=== PATIENT | female | born 1955 | race Caucasian/White ===

== ENCOUNTER 2017-04-24 14:41 | Observation (INO) | payer OTHER ==
--- NOTE | ~2017-04-24 | CR72 ---
[facility] A Service of [facility] RADIOLOGY TEXT RESULTS PATIENT: CHRISSY LANZA LOCATION: [facility] 331- : 53 UNIT #: [id number] AGE: [address]: SHIRLEY GARLAND MD SEX: F ORDER DR: [id number] [facility] [address]. [place], [place] [address] [id number] I MR#: [id number] Acc #: [id number] NAME: CHRISSY LANZA : 1955 SEX: F STUDY DATE/TIME: 04/24/2017 15:33 UNIT: [address] ROOM: [facility] STUDY DESCRIPTION: CR Chest Single View Portable Attending Physician: Shirley Garland M.D. Ordering Physician: Darvin Cordero D.O. Primary Care Physician: Hua Casper M.D. MEDICAL IMAGING REPORT This report is preliminary unless electronic signature is present EXAM Portable chest INDICATIONS Dizziness today. Headache and syncope. COMPARISON 12/17/16 FINDINGS Lungs are well expanded. No acute infiltrate. Heart size normal. Stable scoliosis. IMPRESSION No active disease. Dictated by... Elmo Alvarado M.D. THIS IS AN ELECTRONICALLY VERIFIED REPORT Elmo Alvarado M.D. at 04/25/2017 7:38 AM ARS/monique TD: 04/24/2017 20:59 JOB #: [id number] MEDICAL IMAGING REPORT Page 1 of 1 COPY
--- NOTE | ~2017-04-24 | EKG ---
PATIENT: CHRISSY LANZA UNIT #: [id number] Ventricular Rate: 54 BPM Atrial Rate: 54 BPM P-R Interval: 156 ms QRS Duration: 92 ms Q-T Interval: 436 ms QTC Calculation(Bezet): 413 ms P Argyle: 52 degrees Calculated R Argyle: -7 degrees Calculated T Argyle: -17 degrees Diagnosis Line: Sinus bradycardia Diagnosis Line: Nonspecific ST abnormality Diagnosis Line: Abnormal ECG Diagnosis Line: When compared with ECG of 17-DEC-2016 08:40, Diagnosis Line: Questionable change in initial forces of Septal Diagnosis Line: leads Diagnosis Line: Confirmed by RG FLOYD MD ([id number]) on Diagnosis Line: 04/25/2017 9:09:23 PM INTERPRETING MD: ADE
--- NOTE | ~2017-04-24 | DS ---
Unit #: [id number] #: [id number] Patient: CHRISSY LANZA [id number] [address] [place], [place] [address] [id number] I MR#: [id number] NAME: CHRISSY LANZA ROOM: 331 Age: 61 Sex: F Admission Date: 04/24/2017 : 1955 Discharge Date: 04/25/2017 Attending Physician: Maya Friend M.D. Primary Care Physician: Hua Casper M.D. DISCHARGE SUMMARY SHORT STAY SUMMARY DIAGNOSIS ON ADMISSION Near syncope. DIAGNOSES ON DISCHARGE 1. Syncope. 2. Bradycardia, resolved. 3. Hypertension. 4. Continued tobacco abuse. 5. Migraine headache. 6. Depression. CONSULTATIONS 1. Dr. Downey in cardiac consultation. 2. Dr. Johnston in neuro consultation. HISTORY OF PRESENT ILLNESS A 61-year-old patient was admitted in the hospital with a syncopal episode. Details are as per admission H and P. Patient was seen by cardiology in consultation who performed echocardiogram which as per cardiology was okay. Cardiology is planning to do an event monitor and states that patient can be discharged home. Patient was seen by Dr. Johnston in neurology consultation, who stated that patient does not need any seizure medicine at this point but needs further workup at [facility]. Today patient is comfortable, is not in any acute distress, wants to go home. RECOMMENDATIONS ON DISCHARGE Condition is stable. Activity as tolerated. MEDICATIONS 1. Tylenol 650 mg p.o. q.6 hours p.r.n. 2. Depakote ER 500 mg p.o. nightly. 3. Cymbalta 60 mg p.o. daily. 4. Valtrex 1 g p.o. daily p.r.n. 5. Klonopin 1 mg p.o. p.r.n. 6. Lisinopril 10 mg p.o. daily. 7. Multivitamin one tablet p.o. daily. 8. Hydrocodone one tablet p.o. nightly p.r.n. 9. Vitamin C 500 mg p.o. daily p.r.n. Unit #: [id number] #: [id number] Patient: CHRISSY LANZA 10. Patient's atenolol was discontinued because of the bradycardia. FOLLOWUP 1. The patient is advised to follow up with primary care physician in one week and have a CBC, BMP, and TSH done. 2. The patient is advised to follow up with cardiology as recommended in [facility] as recommended. 3. Cardiology will arrange an event monitor on discharge. 4. Smoking cessation education was provided. The plan was discussed in detail with patient who showed complete understanding. Dictated by... Nory Spain/jacqueline TD: 04/25/2017 16:45 JOB #: [id number] CC: Hua Casper M.D. DISCHARGE SUMMARY Page 1 of 1 X Maya Friend MD X DISCHARGE SUMMARY
--- NOTE | ~2017-04-24 | CO ---
Unit #: [id number] #: [id number] Patient: CHRISSY LANZA [id number] [facility] [address]. [place], [place] [address] [id number] I MR#: [id number] NAME: CHRISSY LANZA ROOM: 331 Age: 61 Sex: F Admission Date: 04/24/2017 : 1955 Attending Physician: Maya Friend M.D. Primary Care Physician: Hua Casper M.D. Consultation Date: 04/25/2017 CONSULTATION REPORT PRIMARY CARE PHYSICIAN Dr. Hua Casper. REASON FOR CONSULTATION Syncopal/near-syncopal episode. PATIENT IDENTIFICATION This is a 61-year-old right-handed white female who is evaluated in room 331 at [facility]. SOURCE OF INFORMATION The patient and evaluation done by Dr. Garland. PROBLEM LIST 1. Hypertension. 2. Active smoker. 3. Migraine. 4. Depression. 5. Back problem. 6. History of seizures/stress-related seizures. 7. Left knee replacement. 8. Carpal tunnel release. 9. Tubal ligation. 10. Bradycardia. HISTORY OF PRESENT ILLNESS This is a 61-year-old right-handed white female who actually was admitted because she had a possible syncopal or near syncopal episode. The patient reports that she has not been feeling well since last Monday, and apparently, she is supposed to be either on lisinopril or metoprolol, but apparently she took both of them. She called her primary care physician and told her not to combine both yet she did it because she was going to work, and for some reason, she thought it was needed. She felt lightheaded and dizzy and yesterday while going to the car she collapsed. She apparently may have passed out. She was a bit confused, but nobody witnessed the generalized seizure. She reports that her son, who was in the house, came to get her. There was no loss of bowel or bladder control. Apparently, she was then brought into the hospital and she was slightly bradycardic. Neurology was consulted because she has history of seizures. Apparently, she has had a full neuro workup done in the past. It looks like she has had epileptic monitoring done and she reports that her seizures were reportedly due to stress, so when she changed her job and then got Unit #: [id number] #: [id number] Patient: CHRISSY LANZA . She never had any seizure. She was on Keppra and may have used other medication, but it caused her to be lethargic, but apparently, the medication was stopped and she has not had any events. She has not had any events in about 15-20 years. No headaches now, but she has history of migraines and she somehow reports that it causes problems. Cardiology is seeing her because she has bradycardia. She has a lot of stress. She still works as an RN at [employer]. PAST MEDICAL HISTORY As discussed above. PAST SURGICAL HISTORY As discussed above. ALLERGIES Lamotrigine and alteplase and I am uncertain why and when she got alteplase. HOME MEDICATIONS Cymbalta, Zestril, Tenormin, Imitrex, and Klonopin. Other medications ?. FAMILY HISTORY No epilepsy. SOCIAL HISTORY The patient is . She lives with her son. 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 She is smoking about a half pack per day for many years. Denies any alcohol or drug use. REVIEW OF SYSTEMS Detailed review of system was attempted. GENERAL: The patient denies any weight issues, fever, chills, rigor, or sweats. HEENT: No headaches. No double vision, earache, runny nose, or sore throat. CARDIOVASCULAR: No chest pain, clubbing, cyanosis, orthopnea, or palpitation. PULMONARY: No shortness of air, cough, or expectoration. GASTROINTESTINAL: No nausea, vomiting, diarrhea, or constipation. GENITOURINARY: No genitourinary symptoms. PSYCHIATRIC: Issue is probably anxiety and depression. NEUROLOGIC: Issue was prior history of spells, probably nonepileptic events. No other hematologic, dermatologic, or endocrine problems. No genitourinary symptoms. No extremity or back problems actively. She did have possible brachial plexopathy in the past. PHYSICAL EXAMINATION VITAL SIGNS: Temperature 98.4, pulse 62, respirations 18, blood pressure 134/72 lying down, pulse is 62, sitting was 132/70 and pulse was 68, standing was 132/74 and pulse was 70, O2 saturation were 92% to 100%. NEUROLOGIC: The patient is awake, alert, and oriented x3 and has normal Unit #: [id number] #: [id number] Patient: CHRISSY LANZA speech. Cranial nerve examination demonstrates full whiteside of vision to confrontation. Eye movements are conjugate. I did not see any ptosis. I did not see any nystagmus. Extraocular movements are intact. Sensation on the face and scalp are normal. Strength of muscles of facial expression normal. Hearing seemed to be intact bilaterally. Tongue was midline. Uvula was midline. Palate elevation is normal. Head turning and shoulder shrugs were unremarkable. Motor examination demonstrated normal bulk and tone. Strength was essentially 5-/5 all over. No pronator drift or fine motor movement abnormalities were seen. Sensory examination intact for soft touch and pain sensation. No extinction was seen. Romberg was not evaluated. Gait exams were deferred. Reflexes 1/4. Toes are equivocal. DIAGNOSTIC STUDIES LABORATORY RESULTS: Random glucose was 79 to 83, otherwise chemistry profile was okay. White count was 8.0, hemoglobin and hematocrit of 12.9 and 39.6, and platelet count was 273. Urine drug screen was positive for opiates, but not for benzos. Urinalysis showed leukocyte esterase 2+, 5-10 wbc's, 1+ and bacteria. IMAGING STUDIES: A head CT, which was unremarkable. IMPRESSION This is a very interesting 61-year-old female with syncope or near syncopal episode. She was bradycardiac. She was taking lisinopril and metoprolol. She has a prior history of "seizures," but she was evaluated and I believe she was not found to be epileptic as these are stress-related events. The recommendation was to observe, so I would continue observation, loss of consciousness precautions apply, and I will recommend that she goes back to [facility], where she was seen in the past and be re-evaluated. These may be provoked events from bradycardia the way they are presented. Epilepsy not established, but not absolutely ruled out as she has had some problems with antiepileptics, I would not blindly go with antiepileptics, though we can consider Vimpat 50 to 100 mg twice daily, but she agrees to be revaluated 1st and she is an RN, so I think this will be a better idea. I discussed with the team briefly. Again if she did loose consciousness, the loss of conscious precautions apply. Call me if any other questions, issues, or concerns. Call me for any other events. Dictated by... Briseyda Johnston M.D. AUGUSTA/tito TD: 04/26/2017 12:04 JOB #: [id number] Unit #: [id number] #: [id number] Patient: CHRISSY LANZA CONSULTATION REPORT Page 1 of 1 X Briseyda Johnston MD X CONSULTATION REPORT
--- NOTE | ~2017-04-24 | CO ---
Unit #: [id number] #: [id number] Patient: CHRISSY LANZA [id number] [address] [place], [place] [address] [id number] I MR#: [id number] NAME: CHRISSY LANZA ROOM: 331 Age: 61 Sex: F Admission Date: 04/24/2017 : 1955 Attending Physician: Maya Friend M.D. Primary Care Physician: Hua Casper M.D. CONSULTATION REPORT REASON FOR CONSULTATION Syncope. HISTORY OF PRESENT ILLNESS This is a 61-year-old white female, who presented to the emergency room with a syncopal episode. She stated on Monday she was at work and did not feel well. After driving home, she did not realize how she actually made it to there. On Monday, she began to have a left-sided headache. No vision disturbances, unilateral weakness or difficulty with swallowing. Yesterday, her blood pressure was elevated, which she states was 148/110 mmHg. She had been taking the atenolol in the past, but was told to stop taking lisinopril by her primary care physician. Because her blood pressure was elevated, she took both metoprolol and lisinopril. She was driving to work with her son in the car and he noticed that she was not driving quite right. She pulled over to the side of the road and got out of the car, but she passed out. She came into the emergency room for evaluation where she was found to be bradycardic. Per electrocardiogram, her heart rate was in the 50s. There was no high-grade AV block or pauses noted. She is normotensive without any evidence of fever or chills. She has no reported chest pain, but had palpitations. She denies dyspnea or dizziness. Her troponin was negative. Electrolytes within normal limits. CT of the head was negative. She has been seen by our group in the past where she underwent Lexiscan Cardiolite stress test in 06/2016. She is known to have hypertension, nicotine abuse, and family history of premature coronary artery disease as risk factors for ischemic heart disease. She reports a cardiac catheterization more than 20 years ago where there was no significant disease. She is also known to have a history of seizure disorder in the past and was on Depakote, but has not taken Depakote for least 6 years. PAST MEDICAL HISTORY 1. Cardiac catheterization 20 years ago, no details available. 2. Lexiscan Cardiolite stress test, 06/14/2016, shows no ischemia or prior infarct. 3. Hypertension. 4. Seizure disorder. 5. Degenerative disk disease. 6. Chronic back pain. 7. Depression/anxiety. 8. Migraine headache. 9. Active smoker. PAST SURGICAL HISTORY Unit #: [id number] #: [id number] Patient: CHRISSY LANZA 1. Left knee replacement. 2. Right carpal tunnel release. 3. Tubal ligation. 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 She lives with her son. She continues to smoke half a pack of cigarettes a day. She denies illicit drug and alcohol use. FAMILY HISTORY Mother from myocardial infarction in the 50s. ALLERGIES Streptokinase, alteplase, ibuprofen, NSAIDs, and lamotrigine. HOME MEDICATIONS Cymbalta 60 mg daily, Zestril 10 mg daily, Tenormin 50 mg daily, Klonopin 1 mg daily p.r.n., Valtrex 1 g daily, hydrocodone/acetaminophen 5/325 one q.h.s. p.r.n., multivitamin one tablet daily, vitamin C 1 tablet daily, Benadryl 25 mg daily p.r.n. REVIEW OF SYSTEMS CONSTITUTIONAL: Negative for fever or chills. Has weakness and fatigue. HEENT: Positive for headache, but no dizziness. Difficulty with swallowing. No hearing or visual changes. DICTATION ENDS HERE Dictated by... Ionaa FernándezPAlexandraRDale. DAVID/tito TD: 04/27/2017 03:13 JOB #: [id number] CONSULTATION REPORT Page 1 of 1 X Christopher Sanchez APRN CONSULTATION REPORT
--- NOTE | ~2017-04-24 | CT71 ---
[facility] A Service of [facility] RADIOLOGY TEXT RESULTS PATIENT: CHRISSY LANZA LOCATION: [facility] 331-01 : 53 UNIT #: [id number] AGE: [address]: Maya Friend MD SEX: F ORDER DR: [id number] [facility] [address] [facility]. [place], [place] [address] [id number] I MR#: [id number] #: [id number] NAME: CHRISSY LANZA : 1955 SEX: F STUDY DATE/TIME: 04/24/2017 16:23 UNIT: [address] ROOM: [facility] STUDY DESCRIPTION: CT Head Wo Contrast Attending Physician: Taylor Garland M.D. Ordering Physician: Darvin Cordero D.O. Primary Care Physician: Hua Casper M.D. MEDICAL IMAGING REPORT This report is preliminary unless electronic signature is present EXAM CT head without contrast DATE: 04/24/2017 HISTORY 61-year-old female syncopal episode and headaches for [address] head 03/20/2014. This CT exam was performed with one or more of the following radiation dose reduction techniques: automatic exposure control, adjustment of mA and/or kV according to patient size, and iterative reconstruction. FINDINGS Axial noncontrast images were obtained from the skull base to the vertex. Ventricular size and configuration are normal. There is no evidence of acute infarct or hemorrhage. There are no extra-axial fluid collections. No mass lesion or mass effect is seen. There are no skull fractures. IMPRESSION Normal noncontrast head CT. Dictated by... Maria Luisa Son M.D. THIS IS AN ELECTRONICALLY VERIFIED REPORT Maria Luisa Son M.D. at 04/25/2017 8:48 AM OMAR/adrien [facility] A Service [facility] RADIOLOGY TEXT RESULTS PATIENT: CHRISSY LANZA LOCATION: [facility] 331-01 : 53 UNIT #: [id number] AGE: [address]: Maya Friend MD SEX: F ORDER DR: TD: 04/24/2017 23:55 JOB #: [id number] MEDICAL IMAGING REPORT Page 1 of 1 COPY
--- NOTE | ~2017-04-24 | CO ---
Unit #: [id number] #: [id number] Patient: CHRISSY LANZA [id number] [address] [place], [place] [address] [id number] I MR#: [id number] NAME: CHRISSY LANZA ROOM: 331 Age: 61 Sex: F Admission Date: 04/24/2017 : 1955 Attending Physician: Maya Friend M.D. Primary Care Physician: Hua Casper M.D. CONSULTATION REPORT ADDENDUM REVIEW OF SYSTEMS CARDIOVASCULAR: The patient has no symptoms of angina. Positive for palpitations. No paroxysmal nocturnal dyspnea or orthopnea. Reports syncope. RESPIRATORY: Negative for dyspnea, cough, or hemoptysis. GASTROINTESTINAL: No abdominal pain, nausea, or vomiting. No constipation or melena. EXTREMITIES: Negative for lower extremity edema. PHYSICAL EXAMINATION VITAL SIGNS: Blood pressure 134/72, heart rate 62, temperature 98.4. GENERAL: This is a 61-year-old white female, who appears older than her stated age. NEUROLOGIC: She is awake, alert, and oriented. There are no focal weaknesses. NECK: Trachea is midline. No thyromegaly or lymphadenopathy. No jugular venous distention. HEART: S1, S2. Heart sounds are normal. No murmurs, rubs, or clicks. Regular rate and rhythm. LUNGS: Clear without rales, rhonchi, or wheeze. ABDOMEN: Soft and nontender with bowel sounds present. EXTREMITIES: Without leg edema. SKIN: Warm and dry. DIAGNOSTIC STUDIES LABORATORY RESULTS: Hemoglobin 12.4, hematocrit 39.6, platelet count 273, and white count 8.0. Sodium 141, potassium 3.8, BUN 13, creatinine 0.8, glucose 79. Troponin less than 0.05 and less than 0.03. IMAGING STUDIES: Chest x-ray shows no active disease. CT of the head, negative. CARDIOVASCULAR STUDIES: EKG shows sinus bradycardia rate of 54 beats per minute with incomplete right bundle-branch block. There is left axis deviation. There are Q waves noted in V1 and V2 with questionable old septal infarct. IMPRESSION 1. Syncope. 2. Questionable seizures. Unit #: [id number] #: [id number] Patient: CHRISSY LANZA 3. Abnormal EKG with septal Q waves. 4. Normal Lexiscan Cardiolite stress test in 06/2016. 5. Hypertension. 6. Headache. 7. Nicotine abuse. PLAN 1. Cardiology was consulted for evaluation of syncope. The patient's syncopal episode is concerning for questionable seizures. We will ask Neuro to see the patient. 2. Check orthostatics. 3. 2D echocardiogram will be done to evaluate for structural heart disease and for left ventricular systolic function. 4. TSH will be checked. 5. Encourage the patient to quit smoking. 6. We will follow the patient with you. Thank you for allowing us to assist with this patient's care. Dictated by... Ceasar Fernández/tito TD: 04/27/2017 00:55 JOB #: [id number] CONSULTATION REPORT Page 1 of 1 X Christopher Sanchez APRN X CONSULTATION REPORT
--- NOTE | ~2017-04-24 | HP ---
Unit #: [id number] #: [id number] Patient: CHRISSY LANZA [id number] [address] [place], [place] [address] [id number] MR#: [id number] NAME: CHRISSY LANZA ROOM: Age: 61 Sex: F Admission Date: 04/24/2017 : 1955 Attending Physician: Darvin Cordero D.O. Primary Care Physician: Hua Casper M.D. HISTORY AND PHYSICAL CHIEF COMPLAINT Near syncopal episode. HISTORY OF PRESENT ILLNESS The patient is a 61-year-old female with history of hypertension, depression, active smoker, presented to the emergency room with a near syncopal episode. The patient stated the patient was feeling dizzy since Monday night. 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 The patient stated that the patient continues to have the worsening dizziness and that made her to come to the emergency room. The patient was on lisinopril, metoprolol both had problems in the past. However, the PCP recommended to stop the metoprolol. The patient was on lisinopril. However, the patient took the metoprolol this morning and patient is found to be bradycardic in the range of 48 to 53 and is being admitted for the above reasons. PAST MEDICAL HISTORY 1. History of stress test back in 2004 that was normal. 2. Cardiac catheterization in the past that was normal. 3. Hypertension. 4. Active smoker. 5. Back problems. 6. Migraine headache. 7. Depression. PAST SURGICAL HISTORY 1. Left knee replacement. 2. Carpal tunnel right wrist. 3. Tubal ligation. HOME MEDICATIONS 1. Cymbalta. 2. Zestril. 3. Tenormin. 4. Imitrex. 5. Klonopin. ALLERGIES 1. Lamotrigine. 2. Alteplase. SOCIAL HISTORY The patient lives with her son. 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 The patient has been smoking one-half pack per day for many years and trying to quit. Denies illicit drugs and alcohol. REVIEW OF SYSTEMS A 14-point review of systems performed and only pertinent positive findings as described above, remaining are negative. PHYSICAL EXAMINATION VITAL SIGNS: Temperature 98.4, pulse 50, respiratory rate 15, blood pressure 132/86, saturating 90%. GENERAL: Patient is lying on the bed not in acute distress. HEENT: Atraumatic, normocephalic. Pupils equal, round, and reactive to light and accommodation. Extraocular movements are intact. NECK: Supple. LUNGS: Decreased air entry at the bases. HEART: Regular rate and rhythm. ABDOMEN: Soft, positive bowel sounds. EXTREMITIES: No cyanosis, no clubbing. NEUROLOGIC: Alert, awake, oriented. No gross focal motor deficit. DIAGNOSTIC STUDIES LABORATORY: UA shows 2+ leukocyte esterase, 5-10 urine rbc's, and urine bacteria 1+ and urine has increased moderate squamous cells. Troponin less than 0.05. Sodium 140, potassium 3.6, chloride 105, bicarb 28, glucose 83, BUN 12, creatinine 0.7, AST 20, ALT 16, alkaline phosphatase 89. INR 1. WBC 7, hemoglobin 12.4, hematocrit 38, platelets 260. Troponin less than 0.05. ASSESSMENT AND PLAN 1. Near syncope. 2. Bradycardia. 3. Hypertension. PLAN 1. Admit patient as observation. 2. Patient will have serial troponins to rule out ischemia. 3. Patient will be seen by Dr. Black as he has seen her in the past. 4. Will hold Tenormin. 5. Patient had a negative CT of the head. 6. Continue with the supportive care. 7. Further recommendations will follow. Dictated by Nory Valenzuela/monique TD: 04/24/2017 19:37 JOB #: [id number] Unit #: [id number] #: [id number] Patient: CHRISSY LANZA HISTORY AND PHYSICAL Page 1 of 1 X SHIRLEY MORRIS MD HISTORY AND PHYSICAL
[~2017-04-24 14:41] MED LIST: AMITRYPTYLINE PO; ASPIRINEC PO; ATENOLOL50 MG PO; BACLOFEN10 MG PO; BACTRIM DS TABL1 TA1 PO; CIPRO PO; CYMBALTA PO; DEPAKOTE PO; DETROL LA PO; DICLOXAXILLIN250 MG PO; DOXYCYCLINE PO; FLEXERIL10 MG PO; HYDROCODON-ACE1 EACH PO; IMITREX25 MG PO; KLONOPIN PO; LISINOPRIL PO; LISINOPRIL5 MG PO; LORTAB 5/500 TA1 TA1 PO; LORTAB 7.5-5001 TAB PO; LYRICA PO; MAG-OXIDE400 MG PO; MEDROL4 MG/DOSE- PO; NO MEDICATIONS; NORMODYNE PO; PHENERGAN25 M1 PO; PREVACID PO; PRINIVIL5 MG PO; PYRIDIUM100 MG PO; SEROQUEL PO; TENORMIN25 MG PO; ULTRACET TABLET1 TAB PO; ULTRAM PO; UNK MUSCLE RELAXER; VICODIN 5/1 TAB 5/50 PO; ZANAFLEX PO; ZESTRIL10 M1 PO; ZOVIRAX800 MG PO
[2017-04-24 16:18] LABS: BASOPHIL% 0.5 % (0-2.5); EOSINOPHIL# 0.1 X10e3 (0-0.7); EOSINOPHIL% 1.3 % (0.0-7.0); HEMOGLOBIN 12.4 gm/dL (12.0-16.0); LYMPHOCYTE# 2.4 X10e3 (1.0-3.5); LYMPHOCYTE% 33.7 % (17.0-45.0); MEAN CELL VOLUME 86.3 FL (83-96); MEAN CORPUSCULAR HEMOGLOBIN 28.3 PG (28-34); MEAN CORPUSCULAR HGB CONC 32.7 g/dL (30-36); MEAN PLATELET VOLUME 8.5 FL (6.5-11.5); MONOCYTE# 0.5 X10e3 (0-1.0); MONOCYTE% 7.1 % (3.0-12.0); NEUTROPHIL% 57.4 % (40-75); PLATELET COUNT 260 X10e3 (140-420); RED CELL DISTRIBUTION WIDTH 13.6 % (11.0-15.5)
[2017-04-24 16:18] LABS: POC - CKMB <1.0 ng/mL (0.0-7.9); POC - TROPONIN <0.05 ng/mL (<=0.05)
[2017-04-24 16:20] LABS: DIFF IND NO
[2017-04-24 16:27] LABS: PARTIAL THROMBOPLASTIN TIME 22.5 SECONDS (23.5-31.3); PROTHROMBIN TIME (PATIENT) 10.2 SECONDS (9.6-11.5)
[2017-04-24 16:39] LABS: ALBUMIN SERUM 3.7 g/dL (3.5-5.0); BILIRUBIN, DIRECT 0.1 mg/dL (0.0-0.2); BILIRUBIN,INDIRECT 0.3 mg/dL (0.0-0.9); BILIRUBIN,TOTAL 0.4 mg/dL (0.2-2.0); BUN/CREATININE RATIO 17.14; CALCIUM SERUM 8.8 mg/dL (8.4-10.2); CREATININE SERUM 0.7 mg/dL (0.6-1.4); GLOM FILT RATE Estimated 92.2 mL/min (>60); POTASSIUM 3.6 mmol/L (3.5-5.1); PROTEIN TOTAL SERUM 6.4 g/dL (6.0-8.3)
[2017-04-24] MEDS ORDERED: VALTREX PO (17:21)
[2017-04-24] MEDS ORDERED: VITAMIN C100 MG PO (17:22)
[2017-04-24] MEDS ORDERED: WOMEN'S MULTI200 MCG PO (17:22)
[2017-04-24] MEDS ORDERED: DEPAKOTE ER PO (17:22)
[2017-04-24] MEDS ORDERED: HYDROCODON-ACE1 EAC7 PO (17:22)
[2017-04-24] MEDS ORDERED: PATIENT'S PHARMACY (17:23)
[2017-04-24] MEDS ORDERED: BENADRYL25 M3 PO (17:23)
[2017-04-24 18:11] LABS: POC - CKMB <1.0 ng/mL (0.0-7.9); POC - TROPONIN <0.05 ng/mL (<=0.05)
[2017-04-24 18:36] LABS: URINE SOURCE CLEAN CATCH
[2017-04-24 18:41] LABS: URINE APPEARANCE CLOUDY; URINE BILIRUBIN NEG (NEG); URINE BLOOD NEG (NEG); URINE COLOR YELLOW; URINE GLUCOSE NEG (NEG); URINE KETONE NEG (NEG); URINE LEUKOCYTE ESTERASE 2+ (NEG); URINE NITRATE NEG (NEG); URINE PROTEIN NEG (NEG); URINE SPECIFIC GRAVITY 1.013 (1.003-1.035)
[2017-04-24 18:43] LABS: CULTURE INDICATED? YES; URINE BACTERIA AUWI 1+ (NEGATIVE); URINE SQUAMOUS EPITHELIAL CELL MOD /[HPF]
[2017-04-24 18:51] LABS: AMPHETAMINE NEG (NEG); BARBITURATES NEG (NEG); BENZODIAZEPINES NEG (NEG); COCAINE NEG (NEG); MARIJUANA NEG (NEG); OPIATES POS (NEG); TRICYCLIC ANTIDEPRESSANTS NEG (NEG); U METHADONE NEG (NEG)
[2017-04-25 07:29] LABS: BASOPHIL# 0.1 X10e3 (0-0.3); BASOPHIL% 0.8 % (0-2.5); EOSINOPHIL# 0.2 X10e3 (0-0.7); EOSINOPHIL% 2.8 % (0.0-7.0); HEMATOCRIT 39.6 % (35.0-45.0); HEMOGLOBIN 12.9 gm/dL (12.0-16.0); LYMPHOCYTE# 3.3 X10e3 (1.0-3.5); LYMPHOCYTE% 41.6 % (17.0-45.0); MEAN CELL VOLUME 86.1 FL (83-96); MEAN CORPUSCULAR HEMOGLOBIN 28.1 PG (28-34); MEAN CORPUSCULAR HGB CONC 32.6 g/dL (30-36); MEAN PLATELET VOLUME 8.6 FL (6.5-11.5); MONOCYTE# 0.6 X10e3 (0-1.0); MONOCYTE% 7.6 % (3.0-12.0); NEUTROPHIL# 3.8 X10e3 (1.5-7.1); NEUTROPHIL% 47.2 % (40-75); PLATELET COUNT 273 X10e3 (140-420); RED CELL DISTRIBUTION WIDTH 13.5 % (11.0-15.5)
[2017-04-25 07:31] LABS: DIFF IND NO
[2017-04-25 08:00] LABS: BUN/CREATININE RATIO 16.25; CALCIUM SERUM 9.2 mg/dL (8.4-10.2); CREATININE SERUM 0.8 mg/dL (0.6-1.4); GLOM FILT RATE Estimated 78.5 mL/min (>60); POTASSIUM 3.8 mmol/L (3.5-5.1)
[2017-04-25] MEDS ORDERED: ACETAMINOPHEN650 M3 PO (15:02)
[2017-04-25] MEDS ORDERED: VALTREX PO (15:03)
== END 2017-04-25 17:56 | disposition home or self-care (01) ==
LOC: CED 14:41 → CEDOF 19:00 → CED 19:07 → C3A PCU 19:07 → CEDOF 19:07 → C3A PCU 20:11
PROVIDERS: Emergency Medicine; Internal Medicine
DX: R55 Syncope and collapse (principal); R00.1 Bradycardia, unspecified; I10 Essential (primary) hypertension; F17.200 Nicotine dependence, unspecified, uncomplicated; G43.909 Migraine, unspecified, not intractable, without status migrainosus; F32.9 Major depressive disorder, single episode, unspecified; R94.31 Abnormal electrocardiogram [ECG] [EKG]; Z82.49 Family history of ischemic heart disease and other diseases of the circulatory system; Z96.652 Presence of left artificial knee joint
CPT/HCPCS: 36415; 70450; 71010; 80048; 80076; 80307; 81003; 82553; 84484; 85025; 85610; 85730; 87086; 93005; 93306; 94760; 96372; 99285; G0378; J1650